=== PATIENT | male | born 1950 | race African-American/Black ===

== ENCOUNTER 2017-04-03 09:41 | Outpatient (CLI) | payer OTHER ==
[2017-04-03 10:59] LABS: PTT 28.8 SEC (22.9-36.1); Prothrombin Time 12.8 SEC (12.0-14.7)
[2017-04-03 11:24] LABS: ALT (SGPT) 21 U/L (8-55); AST (SGOT) 15 U/L (5-34); Albumin 3.9 g/dL (3.4-4.8); Alkaline Phosphatase 46 U/L (40-150); Anion Gap 11 mmol/L (10-20); BUN (Urea Nitrogen) 16 mg/dL (8.4-25.7); Bilirubin, Total 0.6 mg/dL (0.2-1.2); Calc. Creatinine Clearance 0 mL/min (70-130); Calcium 9.5 mg/dL (7.8-10.44); Carbon Dioxide 20 mmol/L (23-31); Cardiac Risk 2.3 (Less than 4.5); Chloride 106 mmol/L (98-107); Cholesterol 169 mg/dl (< 200 Desired); Estimated GFR-MDRD Greater than 90; Globulin 2.6 g/dL (2.4-3.5); Glucose 70 mg/dL (80-115); HDL Cholesterol 74 mg/dL (>60 Neg Risk); LDL Cholesterol, Calculated 78 mg/dL; Potassium 4.4 mmol/L (3.5-5.1); Protein, Total 6.5 g/dL (5.8-8.1); Sodium 133 mmol/L (136-145); Triglycerides 87 mg/dL (Less than 150)
[2017-04-03 12:54] LABS: Hemoglobin 14.9 g/dL (14.0-18.0); Mean Corpuscular HGB CONC 33.6 g/dL (32.0-36.0); Mean Corpuscular Hemoglobin 41.2 pg (27.0-31.0); Mean Platelet Volume 6.7 fL (7.4-10.4); Platelet Count 274 thou/uL (130-400); RBC Distribution Width 14.7 % (11.5-14.5); Red Blood Cell (RBC) Count 3.62 mill/uL (4.70-6.10); White Blood Cell (WBC) Count 7.4 thou/uL (4.8-10.8)
== END 2017-04-03 09:42 | disposition home or self-care (01) ==
LOC: LABBT 09:41
PROVIDERS: ATTEND Internal Medicine Cardiovascular Disease
DX: Z01.812 Encounter for preprocedural laboratory examination (principal); I25.10 Atherosclerotic heart disease of native coronary artery without angina pectoris
CPT/HCPCS: 80053; 80061; 85027; 85610; 85730

== ENCOUNTER 2017-04-04 06:30 | Day surgery (SDC) | payer OTHER ==
[2017-04-04] MEDS ORDERED: Heparin 10,000 UNITS/1 ML VIAL ONE (09:10)
[2017-04-04] MEDS ORDERED: Nitroglycerin 100MG/250ML BOT 250 ML ONE (09:34)
[2017-04-04] MEDS ORDERED: Iopamidol 370 76% 100 ML VIAL ONE (12:25)
[2017-04-04] MEDS ORDERED: Iopamidol 370 76% 50 ML VIAL FS ONE (12:25)
--- NOTE | 2017-04-04 12:37 | DIS ---
DATE OF ADMISSION: 04/04/2017 DATE OF DISCHARGE: 04/04/2017 DATE OF OUTPATIENT PROCEDURE: 04/04/2017 INDICATION FOR PROCEDURE: A 66-year-old patient with known coronary disease and chest pain. ADMITTING DIAGNOSES: Coronary artery disease, abnormal stress testing, history of stent placement in the past, history of continued tobacco abuse, history of hypercholesterolemia, history of hypertensi on, gastroesophageal reflux disease, significant peripheral vascular disease. He is status post left knee surgery. He has bilateral leg amputations. He has had right testicular surgery. He has had a right rib surgery, hernia repair. He has had a stent placed in the lower extremity and also has had a cholecystectomy. DISCHARGE DIAGNOSES: Coronary artery disease, abnormal stress testing, history of stent placement in the past, history of continued tobacco abuse, history of hypercholesterolemia, history of hypertensi on, gastroesophageal reflux disease, significant peripheral vascular disease. He is status post left knee surgery. He has bilateral leg amputations. He has had right testicular surgery. He has had a right rib surgery, hernia repair. He has had a stent placed in the lower extremity and also has had a cholecystectomy. PROCEDURES IN THE HOSPITAL: Included cardiac catheterization, left ventriculogram, coronary arteriog sasha, angioplasty and stent placement to the second obtuse marginal branch of the left circumflex. DISCHARGE MEDICATIONS: Include lisinopril 40 mg daily, magnesium 400 mg daily, methocarbamol 750 mg tablet daily, metoprolol 12.5 mg b.i.d., nitroglycerin sublingual tablets 0.4 mg as needed, simvastat in 20 mg daily, Flomax 0.4 mg daily, trazodone 1 tablet 100 mg daily, albuterol sulfate 2 puffs every 6 hours p.r.n. as needed, amlodipine 10 mg daily, aspirin 325 mg daily, Symbicort 160/4.5 two puffs b.i.d., vitamin D3 2000 units orally every day, clonidine 0.1 mg tablets b.i.d., Plavix 75 mg daily, Folvite 1 mg daily, hydrocodone/acetaminophen 5/325 one tablet p.r.n. as directed, Hydrea 1 tablet 50 0 mg daily, Imdur 30 mg tablets daily. He will follow up with me in the office in the next 2-4 weeks. He will continue his routine followup s with his primary care physician, Dr. Yoselin Borges. HOSPITAL COURSE: This is a very pleasant 66-year-old gentleman who unfortunately continues to smoke, has severe peripheral vascular disease and coronary disease, has undergone angioplasty and stent del cement in left anterior descending artery, presents to the office complaining of further chest discom fort. He was advised to undergo repeat cardiac catheterization. He was taken to the cardiac cathete rization lab where he was found to have a patent stent in the left anterior descending artery and pro gression of disease in second obtuse marginal branch of left circumflex which was 95% occluded and al so he has a 90% stenosis in the first diagonal branch that arises from the left anterior descending a rtery just at the takeoff at the stented left anterior descending artery. The right coronary had lum inal irregularities, but no flow limiting disease was noted. The left ventricular systolic function is still normal, ejection fraction of 60%. He underwent angioplasty today with a 2.5 mm balloon to t he obtuse marginal branch of the left circumflex with still some residual stenosis. Then he underwen t further stent placement with a 2.25 x 12 mm drug-coated stent to the obtuse marginal branch of left circumflex with 0% residual stenosis. He was given some nitroglycerin intracoronary during the proc edure. He tolerated the procedure well. There were no difficulties or complications during the proc edure with the balloon inflated. He described this as the same pain that he has been experiencing at home. I believe this was successful. This most likely is the culprit vessel that was involved with his angina. I will see him back in the office in the next 2-4 weeks. At this time, he has remained stable and will be discharged to home within the next 6 hours and if there is no bleeding complicati ons from the actual procedure.
--- NOTE | 2017-04-04 21:09 | EKG ---
Test Reason : POST PTCA/STENT Blood Pressure : / mmHG Vent. Rate : 059 BPM Atrial Rate : 059 BPM P-R Int : 140 ms QRS Dur : 068 ms QT Int : 426 ms P-R-T Axes : 058 008 068 degrees QTc Int : 421 ms Sinus bradycardia with sinus arrhythmia Otherwise normal ECG When compared with ECG of 08-JUL-2011 13:08, No significant change was found Confirmed by ALEJANDRO HINTON ([id number]) on 04/04/2017 9:09:03 PM Referred By: LAURI Confirmed By:ALEJANDRO HINTON
== END 2017-04-04 23:10 | disposition home or self-care (01) ==
LOC: CCL 06:30
PROVIDERS: ATTEND Internal Medicine Cardiovascular Disease
DX: I25.10 Atherosclerotic heart disease of native coronary artery without angina pectoris (principal); R07.9 Chest pain, unspecified; F17.200 Nicotine dependence, unspecified, uncomplicated; E78.00 Pure hypercholesterolemia, unspecified; I10 Essential (primary) hypertension; K21.9 Gastro-esophageal reflux disease without esophagitis; I73.9 Peripheral vascular disease, unspecified; Z79.82 Long term (current) use of aspirin; Z79.02 Long term (current) use of antithrombotics/antiplatelets; Z79.899 Other long term (current) drug therapy; Z88.1 Allergy status to other antibiotic agents; Z88.2 Allergy status to sulfonamides; Z95.5 Presence of coronary angioplasty implant and graft; Z90.49 Acquired absence of other specified parts of digestive tract; Z89.612 Acquired absence of left leg above knee; Z89.611 Acquired absence of right leg above knee; Z98.890 Other specified postprocedural states
CPT/HCPCS: 85347; 92928; 93005; 93458; 93798; C1769; C1874; C1887; C9600; J1644; J2270

== ENCOUNTER 2018-05-08 11:25 | Outpatient (CLI) | payer OTHER ==
[2018-05-08 12:07] LABS: Estimated GFR-MDRD - POC Greater than 90
== END 2018-05-08 11:26 | disposition home or self-care (01) ==
LOC: CT 11:25
PROVIDERS: ATTEND Thoracic Surgery (Cardiothoracic Vascular Surgery)
DX: I25.10 Atherosclerotic heart disease of native coronary artery without angina pectoris (principal); Z53.9 Procedure and treatment not carried out, unspecified reason
CPT/HCPCS: 82565

== ENCOUNTER 2018-05-10 10:25 | Outpatient (CLI) | payer OTHER ==
[2018-05-10] MEDS ORDERED: Iopamidol 370 76% 100 ML VIAL ONE (12:04)
--- NOTE | 2018-05-10 14:09 | CT ---
CT ANGIO ABDOMEN AND PELVIS AND BILATERAL LOWER EXTREMITIES WITH INTRAVENOUS CONTRAST WITH 3D RECONST RUCTIONS: HISTORY: Bilateral leg pain, worse on the right side. COMPARISON: 08/25/2016 FINDINGS: The lung bases are clear. The liver, spleen, pancreas, and gallbladder regions appear unremarkable o n this angiographic phase exam. The right and left adrenal glands and the right and left kidneys are normal in size. The left renal cyst is stable, as compared to the previous exam. There is no significant periaortic or mesenteric a denopathy. There is sigmoid diverticulosis noted. There is some mild atherosclerotic change of the abdominal aorta, which is normal in caliber. No dis section or aneurysm. There is some mild plaque formation at the origin of the celiac artery. There is more pronounced plaque formation at the origin of the superior mesenteric artery, with a mild to m oderate degree of narrowing, difficult to assess due to the calcified plaque. A single left renal ar inge is seen without significant stenosis. There are two right renal arteries without any significan t narrowing. MELINDA is patent. The right lower extremity runoff shows some moderate plaque and mild to moderate narrowing along the course of the common iliac artery, with more severe stenosis near the origin of the right external il iac artery. There is also fairly extensive plaque formation in the internal iliac. There is moderat e narrowing of the right common femoral artery, just above the level of the anastomosis, related to t he stent that has been placed. Once again, it is noted that this stent is occluded. There is flow w ithin the profunda femoral artery. The [place] superficial femoral artery is occluded. The patient h as undergone an [id number] amputation on this side. On the left side, there is mild to moderate narrowing along the course of the common iliac artery, an d moderately severe stenosis of the origin of the external and internal iliac arteries, and in the mo re distal external iliac artery, another area of more severe stenosis. There is dilatation at the le ft common femoral vein level that is similar to the prior examination. There are two occluded stents seen, which extend down to the level of the below the knee amputation. There is occlusion of the na tive superficial femoral artery. The profunda femoral artery patent, although it appears to be fairl y markedly narrowed at its origin. IMPRESSION: 1. No evidence of aortic aneurysm dissection. 2. Mild to moderate stenosis of the common iliac artery with moderately severe narrowing of the righ t external iliac artery at its origin. Also, moderate stenosis of the common femoral artery, just ab ove the anastomosis of an occluded left-sided stent. There is flow within the profunda femoral arter y, but the [place] left femoral artery is occluded. 3. On the left side, similar changes. There is mild to moderate narrowing of the common iliac arter y, moderately severe stenosis of the origin of the external iliac artery, and a second focal area of marked narrowing of the left external iliac artery, more distally. There are two stents that are occ luded on the left side, and the [place] left superficial femoral artery is occluded. There is flow wi thin the profunda femoral artery and its branches. POS: [facility]
== END 2018-05-10 10:26 | disposition home or self-care (01) ==
LOC: CT 10:25
PROVIDERS: ATTEND Thoracic Surgery (Cardiothoracic Vascular Surgery)
DX: I25.10 Atherosclerotic heart disease of native coronary artery without angina pectoris (principal); I70.201 Unspecified atherosclerosis of native arteries of extremities, right leg; I66.8 Occlusion and stenosis of other cerebral arteries
CPT/HCPCS: 75635; Q9967

== ENCOUNTER 2018-05-28 00:08 | Outpatient (CLI) | payer MEDICARE ==
[2018-05-28 11:30] LABS: Hemoglobin 13.6 g/dL (14.0-18.0); Mean Corpuscular HGB CONC 34.7 g/dL (32.0-36.0); Mean Corpuscular Hemoglobin 41.2 pg (27.0-31.0); Platelet Count 210 thou/uL (130-400); RBC Distribution Width 13.5 % (11.5-14.5); Red Blood Cell (RBC) Count 3.31 mill/uL (4.70-6.10); White Blood Cell (WBC) Count 5.2 thou/uL (4.8-10.8)
[2018-05-28 12:07] LABS: Anion Gap 14 mmol/L (10-20); BUN (Urea Nitrogen) 11 mg/dL (8.4-25.7); Calc. Creatinine Clearance 0 mL/min (70-130); Carbon Dioxide 18 mmol/L (23-31); Chloride 101 mmol/L (98-107); Estimated GFR-MDRD Greater than 90; Glucose 71 mg/dL (80-115); Potassium 4.7 mmol/L (3.5-5.1); Sodium 128 mmol/L (136-145)
== END 2018-05-28 00:09 | disposition home or self-care (01) ==
LOC: LABBT 00:08
PROVIDERS: ATTEND Thoracic Surgery (Cardiothoracic Vascular Surgery)
DX: Z01.812 Encounter for preprocedural laboratory examination (principal); I65.8 Occlusion and stenosis of other precerebral arteries
CPT/HCPCS: 80048; 85027

== ENCOUNTER 2018-06-06 06:26 | Day surgery (SDC) | payer MEDICARE ==
[2018-05-28 10:23] VITALS: BMI 19.2
[2018-06-06] MEDS ORDERED: Lidocaine 1% (PF) 30 ML VIAL ONE (06:43)
[2018-06-06] MEDS ORDERED: Fentanyl 100 MCG/2 ML VIAL ONE ×2 (07:22→10:39)
[2018-06-06] MEDS ORDERED: Midazolam HCl 2 mg/2 ml Vial ONE (07:22)
[2018-06-06] MEDS ORDERED: Heparin 10,000 UNITS/1 ML VIAL ONE (08:04)
[2018-06-06] MEDS ORDERED: Protamine Sulfate 50 MG/5 ML VIAL ONE (08:21)
[2018-06-06] MEDS ORDERED: Iopamidol 370 76% 100 ML VIAL ONE (11:59)
--- NOTE | 2018-06-06 12:41 | OP ---
DATE OF PROCEDURE: 06/06/2018 PREOPERATIVE DIAGNOSIS: Ischemic rest pain, right AKA stump. PROCEDURE PERFORMED: Iliac angiography with right external iliac artery stent using 8 x 40 Innova posted with a 7 balloon. ANESTHESIA: General. ESTIMATED BLOOD LOSS: Minimal. FLUORO: 3.2 minutes. DESCRIPTION OF PROCEDURE: After prepping and draping the right groin, ultrasound-guided puncture was carried out. Wire passed and initially a 4-Belgian dilator and sheath were placed and angiography obtained. The patient had about a 70% diameter stenosis of the proximal external iliac artery on the right with minor irregularities otherwise and a 70% stenosis of the profunda femoral artery. The patient was heparinized. A 4-Belgian, 5-Belgian, and then 6-Belgian marker sheaths were placed. The Innova stent was then deployed just below the hypogastric takeoff on the right and posted with a 7 balloon. Following this, completion angiography showed a good result and the patient tolerated the procedure well. Heparin was reversed and sheath removed. Job ID: [id number]
== END 2018-06-06 14:50 | disposition home or self-care (01) ==
LOC: CCL 06:26
PROVIDERS: ATTEND Thoracic Surgery (Cardiothoracic Vascular Surgery)
DX: I70.221 Atherosclerosis of native arteries of extremities with rest pain, right leg (principal); I10 Essential (primary) hypertension; E78.5 Hyperlipidemia, unspecified; I25.10 Atherosclerotic heart disease of native coronary artery without angina pectoris; B19.20 Unspecified viral hepatitis C without hepatic coma; Z88.2 Allergy status to sulfonamides; Z89.611 Acquired absence of right leg above knee; Z79.82 Long term (current) use of aspirin; Z79.899 Other long term (current) drug therapy
CPT/HCPCS: 37221; 76942; 85347; 99152; 99153; C1725; C1769; J1644; J2001; J2250; J2720; J3010; Q9967

== ENCOUNTER 2018-07-30 12:01 | Outpatient (CLI) | payer OTHER ==
--- NOTE | 2018-07-30 13:14 | CT ---
EXAM: CT chest without contrast per low-dose cancer screening protocol HISTORY: History of smoking and nicotine dependence; greater than 50 pack-year smoking history COMPARISON: None TECHNIQUE: Multiple contiguous axial images were obtained in a CT of the chest without contrast per l ow-dose cancer screening protocol. Sagittal and coronal reformats were performed. FINDINGS: Pulmonary nodules: Calcified granulomas are seen in the right middle lobe. No suspicious pulmonary no dules are seen. No focal infiltrates are seen. Pleural space: No pneumothorax or pleural effusion are seen. Heart: The heart is normal in size. Atherosclerotic calcifications in the aorta and coronary arteries . Mediastinum: No hilar or mediastinal lymphadenopathy appreciated on this limited noncontrast examinat ion. Bones: Unremarkable. Visualized subdiaphragmatic structures: Unremarkable. IMPRESSION: Lung RADS category 1-negative.
== END 2018-07-30 12:02 | disposition home or self-care (01) ==
LOC: CT 12:01
DX: Z72.0 Tobacco use (principal)
CPT/HCPCS: G0297

== ENCOUNTER 2019-08-01 03:54 | Emergency (ER) | payer MEDICARE ==
[2019-08-01] MEDS ORDERED: Ketorolac Tromethamine 30 MG/ML VIAL ONE (04:41)
== END 2019-08-01 05:09 | disposition home or self-care (01) ==
LOC: ERS 03:54
DX: T87.89 Other complications of amputation stump (principal); K21.9 Gastro-esophageal reflux disease without esophagitis; E78.5 Hyperlipidemia, unspecified; I10 Essential (primary) hypertension; F17.200 Nicotine dependence, unspecified, uncomplicated; I25.10 Atherosclerotic heart disease of native coronary artery without angina pectoris
CPT/HCPCS: 96372; J1885

== ENCOUNTER 2019-12-06 07:31 | Outpatient (CLI) | payer MEDICARE ==
--- NOTE | 2019-12-06 09:28 | ULT ---
ABDOMINAL AORTIC ULTRASOUND: HISTORY: Abdominal aortic aneurysm screening. FINDINGS: Real-time imaging of the abdominal aorta shows atherosclerotic change. The proximal aorta measures 2 .2, the mid aorta 1.8, and distal aorta 1.5 cm. The proximal common iliac arteries also appear nondi lated. IMPRESSION: No evidence of abdominal aortic aneurysm. POS: [facility]
--- NOTE | 2019-12-06 11:56 | CT ---
CT PULMONARY LUNG SCAN WITHOUT IV CONTRAST: INDICATION: A 69-year-old male with a history of being current smoker and smoking approximately 1 pack per day o ngoing for 55 years. The patient has a history of leukemia and right rib resection. The patient is also a double amputee. The patient has a history of COPD. COMPARISON: Prior CT pulmonary lung scan dated July 30, 2018 and a CTA bilateral lower extremity runoff dated 2018. FINDINGS: Lungs: There is no suspicious pulmonary nodule that is suspicious for early malignancy. There are c hanges of scattered centrilobular emphysema which is moderate in severity. There are areas of mild p eripheral fibrosis seen with scattered areas of mild bronchiectasis. There are calcified granuloma w ithin the right middle lobe. No suspicious confluent airspace opacity is grossly evident. Pleural Space: No pleural effusion or pneumothorax is demonstrated. Mediastinum: There are coronary artery and thoracic aorta calcifications which are severe. There ar e aortic annular calcifications. No pathologically enlarged lymph nodes are evident. There is mucus debris seen along the left posterolateral aspect of the distal mainstem trachea that is inspissated and has locules of gas within it. Upper Abdomen: There is a stable prominent cyst partially visualized involving the mid left kidney. The spleen is grossly unremarkable on this noncontrast exam. The near total visualization of the li syed appears within normal limits. Visualized aspects of the unopacified large and small bowel reveal no acute abnormality. There is scattered colonic diverticulosis. There is a tiny cyst involving th e superior pole of the right kidney. The visualized gallbladder is unremarkable. Osseous Structures: There is diffuse osteopenia present. There is thoracic spondylosis. The right 1st rib is partially resected. There are surgical clips within the right axilla. No suspicious oste olytic or osteoblastic lesion is identified. IMPRESSION: Lung RADS category 1 - benign. Recommend low-dose annual lung cancer screening in 1 year. Category S: Moderate emphysema. Findings of prior granulomatous disease. Prominent vascular calcifications of t he thoracic aorta and coronary arteries. Colonic diverticulosis. Bilateral renal cysts. Diffuse os teopenia. Postprocedural change of a right partial 1st rib resection. POS: [facility]
== END 2019-12-06 07:32 | disposition home or self-care (01) ==
LOC: BICULT 07:31
PROVIDERS: ATTEND Internal Medicine
DX: Z12.2 Encounter for screening for malignant neoplasm of respiratory organs (principal); Z13.6 Encounter for screening for cardiovascular disorders; F17.210 Nicotine dependence, cigarettes, uncomplicated; J43.9 Emphysema, unspecified; I70.0 Atherosclerosis of aorta; I25.10 Atherosclerotic heart disease of native coronary artery without angina pectoris; K57.30 Diverticulosis of large intestine without perforation or abscess without bleeding; N28.1 Cyst of kidney, acquired; M85.80 Other specified disorders of bone density and structure, unspecified site; Z98.890 Other specified postprocedural states
CPT/HCPCS: 76775; G0297

== ENCOUNTER 2020-11-25 08:11 | Outpatient (CLI) | payer MEDICARE | END 2020-11-25 08:12 | disposition home or self-care (01) | LOC: BICCT 08:11 | PROVIDERS: ATTEND Internal Medicine | DX: Z12.2 Encounter for screening for malignant neoplasm of respiratory organs (principal); F17.210 Nicotine dependence, cigarettes, uncomplicated; J44.9 Chronic obstructive pulmonary disease, unspecified | CPT/HCPCS: 71271 ==

== ENCOUNTER 2020-11-25 08:21 | Outpatient (CLI) | payer MEDICARE | END 2020-11-25 08:22 | disposition home or self-care (01) | LOC: BICMAMMO 08:21 | PROVIDERS: ATTEND Internal Medicine | DX: M85.832 Other specified disorders of bone density and structure, left forearm (principal); M85.831 Other specified disorders of bone density and structure, right forearm | CPT/HCPCS: 77080 ==

== ENCOUNTER 2021-03-17 05:19 | Emergency (ER) | payer MEDICARE, OTHER ==
[2021-03-17 05:50] LABS: #Eosinphils 0.1 thou/uL (0.0-0.7); #Lymphocytes 1.1 thou/uL (1.20-3.40); #Monocytes 0.3 thou/uL (0.11-0.59); #Neutrophils 6.4 thou/uL (1.40-6.50); %Basophils 0.5 % (0.0-1.0); %Eosinophils 0.9 % (0.0-10.0); %Lymphocytes 13.4 % (21.0-51.0); %Monocytes 4.2 % (0.0-10.0); %Neutrophils 81.1 % (42.0-75.0); Hemoglobin 14.6 g/dL (14.0-18.0); Mean Corpuscular Hemoglobin 38.1 pg (27.0-31.0); Mean Platelet Volume 7.4 fL (7.4-10.4); Platelet Count 209 thou/uL (130-400); RBC Distribution Width 13.5 % (11.5-14.5); Red Blood Cell (RBC) Count 3.84 mill/uL (4.70-6.10); White Blood Cell (WBC) Count 7.9 thou/uL (4.8-10.8)
[2021-03-17 06:09] LABS: ALT (SGPT) 18 U/L (8-55); AST (SGOT) 19 U/L (5-34); Albumin 3.7 g/dL (3.4-4.8); Alkaline Phosphatase 106 U/L (40-110); Anion Gap 15 mmol/L (10-20); BUN (Urea Nitrogen) 12 mg/dL (8.4-25.7); CK (CPK) 116 U/L (30-200); Calc. Creatinine Clearance 0 mL/min (70-130); Calcium 9.1 mg/dL (7.8-10.44); Carbon Dioxide 23 mmol/L (23-31); Chloride 95 mmol/L (98-107); Globulin 3.1 g/dL (2.4-3.5); Potassium 4.5 mmol/L (3.5-5.1); Protein, Total 6.8 g/dL (5.8-8.1); Sodium 128 mmol/L (136-145)
[2021-03-17 06:18] LABS: Bilirubin Negative (Negative); Blood, Urine Trace (Negative); Glucose, Urine (Dipstick) Negative (Negative); Ketone, Urine Negative (Negative); Leukocyte Negative (Negative); Nitrite Negative (Negative); Protein, Urine (Dipstick) Negative (Neg-Trace); Urobilinogen 0.2 mg/dL (Less than 2)
[2021-03-17 06:34] LABS: Glucose 54 mg/dL (83-110)
[2021-03-17] MEDS ORDERED: Dextrose 50% Abboject 50 ML SYRINGE ONE (06:35)
[2021-03-17 06:47] LABS: Amphetamine Not Detected (NotDetected); Barbiturates Screen Not Detected (NotDetected); Benzodiazepine Screen Not Detected (NotDetected); Cocaine Metabolite Screen Not Detected (NotDetected); Methadone Not Detected (NotDetected); Methamphetamine Not Detected (NotDetected); Opiate Screen Detected (NotDetected); Oxycodone Screen Not Detected (NotDetected); Phencyclidine (PCP) Not Detected (NotDetected); THC/Cannabinoid Screen Not Detected (NotDetected); Tricyclic Screen Not Detected (NotDetected)
[2021-03-17] MEDS ORDERED: Morphine 4 MG/ML VIAL ONE (07:10)
[2021-03-17] MEDS ORDERED: Ondansetron PF 4 MG/2 ML Vial ONE (07:10)
[2021-03-17 07:17] LABS: Bacteria/HPF None Seen HPF (None Seen); RBC/HPF 0-3 HPF (0-3); Squamous Epithelial None Seen HPF (0-3); WBC/HPF 0-3 HPF (0-3)
[2021-03-17 07:18] LABS: Clarity Hazy (Clear)
[2021-03-17] MEDS ORDERED: Lorazepam 2 MG/ML VIAL ONE (10:45)
== END 2021-03-17 12:06 | disposition home or self-care (01) ==
LOC: ERS 05:19
DX: S09.90XA Unspecified injury of head, initial encounter (principal); S00.01XA Abrasion of scalp, initial encounter; S10.93XA Contusion of unspecified part of neck, initial encounter; G62.9 Polyneuropathy, unspecified; I25.10 Atherosclerotic heart disease of native coronary artery without angina pectoris; K21.9 Gastro-esophageal reflux disease without esophagitis; E78.5 Hyperlipidemia, unspecified; I10 Essential (primary) hypertension; F17.210 Nicotine dependence, cigarettes, uncomplicated; Z79.82 Long term (current) use of aspirin; Z79.899 Other long term (current) drug therapy; W06.XXXA Fall from bed, initial encounter
CPT/HCPCS: 36416; 70450; 72125; 80053; 80306; 81003; 82550; 83735; 83880; 84484; 85025; 93005; 96374; 96375; J2060; J2270; J2405

== ENCOUNTER 2021-07-13 14:27 | Outpatient (CLI) | payer MEDICARE ==
[2021-07-13 15:32] LABS: Estimated GFR-MDRD - POC Greater than 90
== END 2021-07-13 14:28 | disposition home or self-care (01) ==
LOC: BICCT 14:27
PROVIDERS: ATTEND Urology
DX: R82.998 Other abnormal findings in urine (principal); K57.30 Diverticulosis of large intestine without perforation or abscess without bleeding; I25.10 Atherosclerotic heart disease of native coronary artery without angina pectoris; I70.0 Atherosclerosis of aorta; Z95.2 Presence of prosthetic heart valve; N28.1 Cyst of kidney, acquired; Z95.1 Presence of aortocoronary bypass graft
CPT/HCPCS: 74177; 82565